=== PATIENT | female | born 1975 | race African-American/Black ===

== ENCOUNTER 2016-08-13 15:41 | Observation (INO) | payer SELFPAY ==
--- NOTE | ~2016-08-13 | TH ---
Unit #: [id number] #: [id number] Patient: EVERETT ADAME [id number] [address] [address] [id number] I MR#: [id number] NAME: EVERETT ADAME : 1975 SEX: F STUDY DATE/TIME: 08/14/2016 UNIT: C5B ROOM: [facility] STUDY DESCRIPTION: Stress nuclear Attending Physician: Paramjit Oakley M.D. Primary Care Physician: No Primary Care Physician CARDIOLOGY REPORT EXAM Stress nuclear. FINDINGS Result text under stress test. Please see this report for result text. Dictated by... Pat Caba/samra TD: 08/18/2016 07:46 JOB #: [id number] CARDIOLOGY REPORT Page 1 of 1 X Paramjit Oakley MD CARDIOLOGY REPORT
--- NOTE | ~2016-08-13 | CR72 ---
[facility] A Service of [facility] & [facility] RADIOLOGY TEXT RESULTS PATIENT: EVERETT ADAME LOCATION: [facility] [id number] : [birth year] UNIT #: [id number] AGE: [address]: Paramjit Oakley MD SEX: F ORDER DR: [id number] [facility] [address]. [place], [place] [address] [id number] I MR#: [id number] Acc #: [id number] NAME: EVERETT ADAME : 1975 SEX: F STUDY DATE/TIME: 08/13/2016 15:49 UNIT: [facility] ROOM: [facility] STUDY DESCRIPTION: CR Chest Single View Portable Attending Physician: Paramjit Oakley M.D. Ordering Physician: Nargis Salmon M.D. Primary Care Physician: Primary Care Physician No MEDICAL IMAGING REPORT This report is preliminary unless electronic signature is present EXAM Portable chest, 08/13/2016 INDICATION Chest pain 1-day duration. Hypertension. FINDINGS Single portable AP view chest without comparison. Heart and mediastinal contour is within normal limits. There is no focal consolidation. No pleural effusion. IMPRESSION No acute cardiopulmonary findings. Dictated by... Vlad Nuñez M.D. THIS IS AN ELECTRONICALLY VERIFIED REPORT Vlad Nuñez M.D. at 08/14/2016 9:26 AM JENNIFER/ruben TD: 08/14/2016 03:44 JOB #: [id number] MEDICAL IMAGING REPORT COPY
--- NOTE | ~2016-08-13 | EKG ---
PATIENT: EVERETT ADAME UNIT #: [id number] Ventricular Rate: 79 BPM Atrial Rate: 79 BPM P-R Interval: 172 ms QRS Duration: 82 ms Q-T Interval: 342 ms QTC Calculation(Bezet): 392 ms P [place]: 47 degrees Calculated R [place]: 9 degrees Calculated T [place]: 36 degrees Diagnosis Line: Normal sinus rhythm with sinus arrhythmia Diagnosis Line: Non Diagnostic Q in Lead Inferior leads Otherwise Diagnosis Line: normal ECG Diagnosis Line: No previous ECGs available Diagnosis Line: Confirmed by RICH WEEKS MD ([id number]) on 08/14/2016 Diagnosis Line: 12:06:33 PM INTERPRETING MD: DESI TAMAYO
--- NOTE | ~2016-08-13 | ST ---
Unit #: [id number] #: [id number] Patient: EVERETT ADAME [id number] [address] [address] [id number] I MR#: [id number] NAME: EVERETT ADAME : 1975 SEX: F STUDY DATE/TIME: 08/14/2016 UNIT: C5B ROOM: [facility] STUDY DESCRIPTION: Stress nuclear/stress test Attending Physician: Paramjit Oakley M.D. Primary Care Physician: No Primary Care Physician CARDIOLOGY REPORT EXAM Stress nuclear/stress test. INDICATIONS Dyspnea, for the diagnosis of obstructive coronary disease contributing to the patient's symptoms. SUMMARY Patient exercised on a Jorge protocol to maximal effort. It should be noted that the heart rate increased very quickly simply with standing. The resting heart rate was 109 beats per minute, increased to 141 when the patient stood up, and then to 179 at peak stress. Patient completed 6 minutes and 31 seconds of exercise. Blood pressure decreased from 156/92 to 146/90 and post exercise was 132/78. There were frequent PVCs noted. These were not recorded, however. Technetium 99 Cardiolite, 11.99 and 35.8 mCi, was injected at rest and stress, respectively. Appropriate views were obtained. FINDINGS Study is adequate. There is no significant patient motion noted at rest or stress. There is no significant lung uptake or LV or RV enlargement. Summed stress score is 3 and summed difference score is a 3, primarily involving the border detection at the base. Perfusion images demonstrate RV size upper normal. There is intestinal artifact at rest and stress. There is diaphragmatic artifact and apical thinning at rest, much less with stress. Otherwise, perfusion is normal and equivalent between rest and stress. Gated perfusion wall motion analysis demonstrates end-diastolic volume 95 mL and ejection fraction 59%. IMPRESSION 1. Myocardial perfusion scan shows no ischemia or infarction. 2. Normal wall motion with excellent ejection fraction. 3. Severe deconditioning is noted. 4. Very rapid increase in heart rate is noted, likely idiopathic, not diagnostic of disease. 5. Blood pressure response is abnormal, decreasing with exercise, which may reflect anxiety. Discuss with patient at next visit. No immediate changes indicated based on this study. Unit #: [id number] #: [id number] Patient: EVERETT ADAME Dictated by... Pat Caba/samra TD: 08/18/2016 07:31 JOB #: [id number] CARDIOLOGY REPORT Page 1 of 1 X Paramjit Oakley MD CARDIOLOGY REPORT
--- NOTE | ~2016-08-13 | HP ---
Unit #: [id number] #: [id number] Patient: EVERETT ADAME [id number] [facility] [address] [place], [place] [address] [id number] I MR#: [id number] NAME: EVERETT ADAME ROOM: [facility] Age: 40 Sex: F Admission Date: 08/13/2016 : 1975 Attending Physician: Paramjit Oakley M.D. Primary Care Physician: No Primary Care Physician HISTORY AND PHYSICAL CHIEF COMPLAINT Chest discomfort, palpitations, headache and elevated blood pressure. HISTORY OF PRESENT ILLNESS This is a 40-year-old, -Greek obese female with a past medical history of hypertension and diabetes type 2 which is borderline, anemia, brain aneurysm, status post brain coiling in March of 2011, asthma and a mitral valve prolapse since the age of 13. She presented on 08/13/16 after she had an episode of some chest discomfort to her left breast near the axilla area which occurred suddenly on the morning of 08/13/16. It was constant and pain lasting less than or around one minute in length. When she had chest pain, which was a constant and sudden pain, nothing made it any better but nothing made it any worse. It was relieved after about a minute on its own. She reports it was a "bubble feeling" similar to gas-type pain. However, even after the pain was relieved she generally did not feel well for the rest of the day. She checked her blood sugar at the time of this discomfort and her blood sugar was 96. She had eaten that morning. She also decided to check her blood pressure because she was generally not feeling well and it was 130/102. Later in the day she kind of brushed it off; however, she was still not feeling well. She rechecked her blood pressure at home and it was 171/102. She did have a headache and she felt palpitations so she decided to come into [facility] evaluation. CARDIAC TESTING HISTORY Apparently she reports mitral valve prolapse was diagnosed at age 13. She does not follow with Cardiology and she has not had an echo within the last year. She tells me however she has had echos before to evaluate her mitral valve prolapse. However, she has had two stress tests in the past, both were at [facility]. Her last one was in March of 2016. She reported it was normal but she does not follow with a videotape editor. PAST SURGICAL HISTORY Past surgical history includes: 1. Arthroscopic knee surgery. 2. Brain coiling in March of 2011. 3. . 4. Oral surgery. 5. Foot surgery. SOCIAL HISTORY She lives with her daughter and her boyfriend. 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 She has never Unit #: [id number] #: [id number] Patient: EVERETT ADAME smoked, denies any illicit drugs, reports alcohol consumption one to two times a week just on a social basis. She states that she is fairly active, able to do activity of daily living including grocery shopping and housework with no complaints. ALLERGIES Sulfa. HOME MEDICATIONS Home medications include: 1. Lisinopril 20 mg daily. 2. Zyrtec over the counter 10 mg p.o. daily. 3. Aspirin 81 mg daily. FAMILY HISTORY Her family history is very notable for premature coronary artery disease. Her father had an AK at the age of 37. Her mother had diabetes and was from an AK at the age of 55. Her brother who is 44 years of age has had coronary artery disease and a stent and another brother who is 50 has coronary artery disease and a CABG. She also has another brother who is diabetic and had an AK at the age of 40. REVIEW OF SYSTEMS Twelve-point review of systems was done as noted above in the HPI. Today on examination she did report a headache and feelings of epigastric fullness and gas-like pain. She denied any shortness of breath, denied any palpitations, denied any chest pain, denied any orthopnea, no PND, no syncope, no dizziness, no recent weight gain/weight loss, no bilateral lower extremity edema, no problems with her skin, no reports of any numbness or tingling to lower extremities. PHYSICAL EXAMINATION VITAL SIGNS: Physical exam includes vital signs of 97.8, heart rate of 114, respirations 16, blood pressure 119/87. GENERAL: Generally she was seen in stress lab for an exercise Cardiolite. She appeared in no acute distress. She is a well-developed, well-nourished, mildly obese -Greek female. NECK: Neck was supple with no JVD noted. Brisk carotid upstrokes. LUNGS: Lungs were clear to auscultate bilaterally. CARDIOVASCULAR: She was in a tachy but regular rhythm. S1, S2 noted. Denies any chest wall tenderness. ABDOMEN: Abdomen was soft and obese with positive bowel sounds. She was nontender and no hepatojugular reflux was noted. EXTREMITIES: Extremities are negative for any edema and she did have positive palpable pulses. DIAGNOSTIC STUDIES CARDIOVASCULAR: EKG which showed normal sinus rhythm with sinus arrhythmia. Nondiagnostic Q wave noted in inferior leads. Two-D echocardiogram done on 08/14/16 is pending. Exercise Cardiolite stress test done on 08/14/16 is also pending. IMAGING: A chest x-ray on 08/13/16 showed no acute cardiopulmonary findings and no pleural effusion. LABORATORY: Testing includes sodium 136, potassium 4.1, chloride 106, CO2 Unit #: [id number] #: [id number] Patient: EVERETT ADAME IVY 24, BUN 18, creatinine 1.2, glucose 102, hemoglobin 10.6, WBCs 8.2, platelet count 251, troponin less than 0.03 x2, TSH 4.12, magnesium was 1.6, total cholesterol 209, triglycerides 65, LDL 143 and HDL 53. IMPRESSION 1. Atypical chest discomfort, not likely ischemic related. 2. Tachycardia with sinus arrhythmia and premature ventricular contractions noted. 3. Hypertension. 4. Obesity. 5. Dyslipidemia. PLAN We will trend her troponin. She has two negative troponins which is unlikely for any ischemia. We will review her echo and her stress test results after read by the videotape editor. We will start her on Lipitor. I have asked care administrative tech to find the cost of (1) and I have talked to the pharmacist about this. Her patient cost would be $147.80 a month but she as a self-pay patient so it is unlikely that she will be able to afford that so starting her off with just a low dose Lipitor 10 mg daily would be appropriate. She is already on an aspirin 81 daily and lisinopril which cardiology agrees to continue. She will need to follow up with her primary care provider. I imagine she will be cleared for discharge if her stress test and echo, once those are resulted, are normal. I will also add an A1C to her labs to check her diabetes management. Further plan per Dr. Oakley. Dictated by Sharee Vegas APRN for Paramjit Oakley M.D. SHANNAN/emanuel TD: 08/14/2016 18:22 JOB #: [id number] HISTORY AND PHYSICAL X X HISTORY AND PHYSICAL
[2016-08-13 16:00] LABS: BASOPHIL% 0.3 % (0-2.5); EOSINOPHIL# 0.2 X10e3 (0-0.7); EOSINOPHIL% 2.9 % (0.0-7.0); HEMATOCRIT 34.8 % (35.0-45.0); HEMOGLOBIN 11.3 gm/dL (12.0-16.0); LYMPHOCYTE# 1.7 X10e3 (1.0-3.5); LYMPHOCYTE% 24.8 % (17.0-45.0); MEAN CELL VOLUME 87.1 FL (83-96); MEAN CORPUSCULAR HEMOGLOBIN 28.3 PG (28-34); MEAN CORPUSCULAR HGB CONC 32.5 g/dL (30-36); MEAN PLATELET VOLUME 8.7 FL (6.5-11.5); MONOCYTE# 0.6 X10e3 (0-1.0); NEUTROPHIL# 4.3 X10e3 (1.5-7.1); PLATELET COUNT 268 X10e3 (140-420); RED CELL DISTRIBUTION WIDTH 13.7 % (11.0-15.5); WHITE BLOOD COUNT 6.9 X10e3 (4.0-10.5)
[2016-08-13 16:03] LABS: DIFF IND NO
[2016-08-13 16:22] LABS: PARTIAL THROMBOPLASTIN TIME 25.7 SECONDS (23.5-31.3); PROTHROMBIN TIME (PATIENT) 10.7 SECONDS (9.6-11.5)
[2016-08-13 16:56] LABS: BILIRUBIN, DIRECT 0.1 mg/dL (0.0-0.2); BILIRUBIN,INDIRECT 0.4 mg/dL (0.0-0.9); BILIRUBIN,TOTAL 0.5 mg/dL (0.2-2.0); BUN/CREATININE RATIO 13.07; CALCIUM SERUM 9.2 mg/dL (8.4-10.2); CREATININE SERUM 1.3 mg/dL (0.6-1.4); GLOM FILT RATE Estimated 58.1 mL/min (>60); MAGNESIUM 1.6 mg/dL (1.6-3.0); POTASSIUM 3.9 mmol/L (3.5-5.1); PROTEIN TOTAL SERUM 7.6 g/dL (6.0-8.3)
[2016-08-13 17:01] LABS: POC - CKMB <1.0 ng/mL (0.0-7.9); POC - TROPONIN <0.05 ng/mL (<=0.05)
[2016-08-13] MEDS ORDERED: ASPIRIN81 MG PO (17:24)
[2016-08-13] MEDS ORDERED: LISINOPRIL20 MG PO (17:24)
[2016-08-13] MEDS ORDERED: ZYRTEC PO (17:24)
[2016-08-13 17:35] LABS: POC - CKMB <1.0 ng/mL (0.0-7.9); POC - TROPONIN <0.05 ng/mL (<=0.05)
[2016-08-14 05:11] LABS: BASOPHIL% 0.4 % (0-2.5); EOSINOPHIL# 0.2 X10e3 (0-0.7); EOSINOPHIL% 1.8 % (0.0-7.0); HEMATOCRIT 31.9 % (35.0-45.0); HEMOGLOBIN 10.6 gm/dL (12.0-16.0); LYMPHOCYTE# 2.3 X10e3 (1.0-3.5); LYMPHOCYTE% 27.1 % (17.0-45.0); MEAN CELL VOLUME 86.8 FL (83-96); MEAN CORPUSCULAR HEMOGLOBIN 28.8 PG (28-34); MEAN CORPUSCULAR HGB CONC 33.2 g/dL (30-36); MEAN PLATELET VOLUME 8.3 FL (6.5-11.5); MONOCYTE# 0.7 X10e3 (0-1.0); MONOCYTE% 8.3 % (3.0-12.0); NEUTROPHIL# 5.3 X10e3 (1.5-7.1); NEUTROPHIL% 62.4 % (40-75); PLATELET COUNT 251 X10e3 (140-420); RED BLOOD COUNT 3.68 X10e (3.90-5.30); WHITE BLOOD COUNT 8.4 X10e3 (4.0-10.5)
[2016-08-14 05:22] LABS: DIFF IND NO
[2016-08-14 05:55] LABS: BLOOD UREA NITROGEN 18 mg/dL (9-23); CALCIUM SERUM 9.2 mg/dL (8.4-10.2); CARBON DIOXIDE 24 mmol/L (22-31); CHLORIDE 106 mmol/L (100-111); CHOLESTEROL 209 mg/dL (0-200); CREATININE SERUM 1.2 mg/dL (0.6-1.4); GLOM FILT RATE Estimated ABOVE60 mL/min (>60); GLUCOSE FASTING 102 mg/dL (70-110); HDL CHOLESTEROL 53 mg/dL (35-95); LDL/HDL RATIO 3 RATIO (0-4); POTASSIUM 4.1 mmol/L (3.5-5.1); SODIUM 136 mmol/L (135-145); TRIGLYCERIDES 65 mg/dL (10-160)
[2016-08-14 05:56] LABS: LDL CHOLESTEROL 143 mg/dL (-130)
[2016-08-14 06:24] LABS: %MB 1.1 % (0.0-4.0); MB 0.8 ng/ml
[2016-08-14] MEDS ORDERED: LIPITOR20 MG PO (17:42)
== END 2016-08-14 18:21 | disposition home or self-care (01) | DRG 313 ==
LOC: CED 15:41 → CEDOF 18:40 → C5B 20:22
PROVIDERS: Emergency Medicine; Internal Medicine
DX: R07.89 Other chest pain (principal); R00.0 Tachycardia, unspecified; I49.3 Ventricular premature depolarization; I10 Essential (primary) hypertension; E66.9 Obesity, unspecified; Z68.35 Body mass index [BMI] 35.0-35.9, adult; E78.5 Hyperlipidemia, unspecified; I08.8 Other rheumatic multiple valve diseases; R73.03 Prediabetes; J45.909 Unspecified asthma, uncomplicated; Z88.2 Allergy status to sulfonamides; Z79.82 Long term (current) use of aspirin; Z82.49 Family history of ischemic heart disease and other diseases of the circulatory system; Z83.3 Family history of diabetes mellitus
CPT/HCPCS: 36415; 71010; 78452; 80048; 80061; 80076; 82550; 82553; 82947; 83036; 83735; 84443; 84484; 85025; 85610; 85730; 93005; 93017; 93306; 99285; A9500; G0378; J2785

== ENCOUNTER 2016-12-31 16:00 | Emergency (ER) | payer OTHER ==
[~2016-12-31] VITALS: Ht 185.4 cm; Wt 124.7 kg
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
[~2016-12-31 16:00] MED LIST: ASPIRIN81 MG PO; LIPITOR20 MG PO; LISINOPRIL20 MG PO; ZYRTEC PO
== END 2016-12-31 18:45 | disposition home or self-care (01) ==
LOC: CED 16:00
DX: S16.1XXA Strain of muscle, fascia and tendon at neck level, initial encounter (principal); Z88.2 Allergy status to sulfonamides; Z79.899 Other long term (current) drug therapy; Z79.82 Long term (current) use of aspirin; V49.40XA Driver injured in collision with unspecified motor vehicles in traffic accident, initial encounter; Y92.488 Other paved roadways as the place of occurrence of the external cause
CPT/HCPCS: 71111; 72040; 72072; 99284